=== PATIENT | male | born 1955 | race African-American/Black ===

== ENCOUNTER 2023-09-26 19:29 | Inpatient (IN) | payer OTHER ==
[2023-09-26] MEDS ORDERED: ONDANSETRON 4 MG/2 ML VIAL ONE (20:44)
[2023-09-26] MEDS ORDERED: ACETAMINOPHEN INJECTION 100 ML IVPB ONE (20:44)
[2023-09-26 21:16] LABS: BASO % 0.2 % (0-2.0); HEMATOCRIT 37.8 % (35.4-49); HEMOGLOBIN 12.4 GM/dL (11.7-16.9); LYMPH % 6.1 % (8-40); MCH 27.9 pg (25.7-33.7); MCHC 32.8 g/dl (32.0-35.9); MEAN CELL VOLUME 84.8 fl (80-96); MEAN PLT VOLUME 7.5 fl (7.5-11.1); MONO % 11.3 % (3.8-10.2); NEUT % 82.4 % (42.8-82.8); PLATELET COUNT 217 10^3/uL (134-434); RBC 4.46 M/mm3 (4.00-5.60); RDW 15.1 % (11.9-15.9); WHITE BLOOD COUNT 11.6 K/mm3 (4.0-10.0)
[2023-09-26] MEDS: ACETAMINOPHEN 1000 MG/100 ML BAG IVPB ONE (21:20)
[2023-09-26] MEDS: SODIUM CHLORIDE 0.9% 500 ML INFUS.BAG IV ONE (21:20)
[2023-09-26] MEDS: ONDANSETRON 4 MG/2 ML VIAL IVPB ONE (21:20)
[2023-09-26] MEDS: FAMOTIDINE 20 MG/50 ML IVPB 20 MG/50 ML MG IVPB ONE (21:51)
[2023-09-26 21:52] LABS: POTASSIUM 3.9 mmol/L (3.5-5.1)
[2023-09-26] MEDS ORDERED: FAMOTIDINE 20 MG/50 ML IVPB 20 MG/50 ML MG IVPB ONE (21:52)
[2023-09-26 21:54] LABS: CALCIUM 9.3 mg/dL (8.5-10.1)
[2023-09-26 21:55] LABS: ALBUMIN 2.4 g/dl (3.4-5.0); BLOOD UREA NITROGEN 31.2 mg/dL (7-18); MAGNESIUM 2.6 mg/dL (1.8-2.4)
[2023-09-26 21:58] LABS: CREATININE 1.1 mg/dL (0.55-1.3)
[2023-09-26 22:00] LABS: BILIRUBIN,TOTAL 0.9 mg/dL (0.2-1); TOT PROT 6.4 g/dl (6.4-8.2)
[2023-09-26 22:03] LABS: N-TERMINAL BNP 460.2 pg/ml (5-125)
[2023-09-26] MEDS ORDERED: DONEPEZIL HCL 5 MG TABLET (FP) ONE (22:46)
[2023-09-26] MEDS ORDERED: ATORVASTATIN CA 20 MG TABLET (FP) ONE (22:46)
[2023-09-27] MEDS ORDERED: morphine SULFATE 4 MG/ML VIAL ONE (02:17)
[2023-09-27] MEDS: morphine CARPU-JECT 4 MG/1 ML DISP.SYRIN IVPUSH ONE (02:23)
[2023-09-27] MEDS: SODIUM CHLORIDE 500 ML IV STA (05:44)
[2023-09-27] MEDS ORDERED: hydrALAZINE HCL 20 MG/ML VIAL IVPUSH PRN (05:45)
[2023-09-27] MEDS: ACETAMINOPHEN 1000 MG/100 ML BAG IVPB PRN (05:48)
[2023-09-27] MEDS: SODIUM CHLORIDE 1,000 ML IV SCH ×2 (06:00→12:41)
[2023-09-27 06:51] LABS: BASO % 0.3 % (0-2.0); EOS % 0.1 % (0-4.5); HEMATOCRIT 35.8 % (35.4-49); HEMOGLOBIN 11.7 GM/dL (11.7-16.9); LYMPH % 8.1 % (8-40); MCH 28.1 pg (25.7-33.7); MCHC 32.7 g/dl (32.0-35.9); MEAN CELL VOLUME 86.1 fl (80-96); MEAN PLT VOLUME 7.8 fl (7.5-11.1); MONO % 12.6 % (3.8-10.2); NEUT % 78.9 % (42.8-82.8); PLATELET COUNT 191 10^3/uL (134-434); RBC 4.16 M/mm3 (4.00-5.60); RDW 14.9 % (11.9-15.9); WHITE BLOOD COUNT 10.2 K/mm3 (4.0-10.0)
[2023-09-27 07:14] LABS: POTASSIUM 3.8 mmol/L (3.5-5.1)
[2023-09-27 07:17] LABS: CALCIUM 8.6 mg/dL (8.5-10.1)
[2023-09-27 07:21] LABS: CREATININE 0.9 mg/dL (0.55-1.3)
[2023-09-27] MEDS: BACLOFEN 10 MG TABLET (FP) PO ONE (08:18)
[2023-09-27] MEDS: amLODIPine BESYLATE 5 MG TABLET (FP) PO ONE ×2 (08:55→12:40)
[2023-09-27 09:19] LABS: URINE COLOR YELLOW
[2023-09-27 09:20] LABS: URINE APPEARANCE CLEAR; URINE BILIRUBIN NEGATIVE (NEGATIVE); URINE GLUCOSE (UA) 500 mg/dl (NEGATIVE); URINE KETONE 15 mg/dl (NEGATIVE); URINE LEUK ESTERASE NEGATIVE (NEGATIVE); URINE NITRITE NEGATIVE (NEGATIVE); URINE PROTEIN 1+ (NEGATIVE)
[2023-09-27 09:21] LABS: EPI CELLS 25.7 /uL (0-25.1); URINE BACTERIA 4.7 /uL (0-1359); URINE RBC 39.8 /uL (0-23.9); URINE WBC 15.6 /uL (0-25.8)
[2023-09-27] MEDS: LISINOPRIL 20 MG TABLET PO ONE (12:40)
[2023-09-27] MEDS ORDERED: BACLOFEN 10 MG TABLET (FP) PO SCH (14:00)
[2023-09-27] MEDS: ASPIRIN 81 MG CHEWABLE TABLETS PO SCH (15:25)
[2023-09-27] MEDS: INSULIN ASPART SLIDING SCALE (NOVOLOG) 1 VIAL SQ SCH (18:47)
[2023-09-27] MEDS: METOPROLOL TARTRATE 25 MG TABLET (FP) PO SCH (21:57)
[2023-09-27] MEDS: POLYETHYLENE GLYCOL (HEALTHYLAX) 3350 17 GM PACKET PO SCH (21:58)
[2023-09-28 07:56] LABS: POTASSIUM 3.8 mmol/L (3.5-5.1)
[2023-09-28 08:03] LABS: CALCIUM 8.5 mg/dL (8.5-10.1)
[2023-09-28 08:04] LABS: ALBUMIN 2.1 g/dl (3.4-5.0); BLOOD UREA NITROGEN 25.9 mg/dL (7-18); MAGNESIUM 2.4 mg/dL (1.8-2.4)
[2023-09-28 08:07] LABS: CREATININE 0.9 mg/dL (0.55-1.3); PHOSPHOROUS 2.5 mg/dL (2.5-4.9)
[2023-09-28 08:08] LABS: BILIRUBIN,TOTAL 1.2 mg/dL (0.2-1); TOT PROT 5.6 g/dl (6.4-8.2)
[2023-09-28] MEDS: HEPARIN NA (PORCINE) 5,000 UNITS/ML 1ML VIAL SQ SCH (09:23)
[2023-09-28] MEDS: LISINOPRIL 20 MG TABLET PO SCH (18:30)
[2023-09-28] MEDS: NIFEdipine E.R 60 MG TABLET PO SCH (18:30)
[2023-09-29] MEDS: ACETAMINOPHEN 325 MG TABLET (FP) PO ONE (02:34)
[2023-09-29 07:26] LABS: POTASSIUM 3.9 mmol/L (3.5-5.1)
[2023-09-29 07:31] LABS: BASO % 0.4 % (0-2.0); EOS % 1.2 % (0-4.5); HEMATOCRIT 34.2 % (35.4-49); HEMOGLOBIN 11.1 GM/dL (11.7-16.9); LYMPH % 9.2 % (8-40); MCH 28.1 pg (25.7-33.7); MCHC 32.5 g/dl (32.0-35.9); MEAN CELL VOLUME 86.5 fl (80-96); MEAN PLT VOLUME 7.7 fl (7.5-11.1); MONO % 11.4 % (3.8-10.2); NEUT % 77.8 % (42.8-82.8); PLATELET COUNT 247 10^3/uL (134-434); RBC 3.95 M/mm3 (4.00-5.60); RDW 14.8 % (11.9-15.9); WHITE BLOOD COUNT 10.2 K/mm3 (4.0-10.0)
[2023-09-29 07:32] LABS: CALCIUM 8.8 mg/dL (8.5-10.1)
[2023-09-29 07:33] LABS: BLOOD UREA NITROGEN 30.9 mg/dL (7-18); MAGNESIUM 2.5 mg/dL (1.8-2.4)
[2023-09-29 07:36] LABS: PHOSPHOROUS 3.1 mg/dL (2.5-4.9)
[2023-09-29 07:37] LABS: BILIRUBIN,TOTAL 0.8 mg/dL (0.2-1); TOT PROT 5.6 g/dl (6.4-8.2)
[2023-09-29] MEDS: SODIUM CHLORIDE 0.45% 1,000 ML IV SCH (19:15)
[2023-09-29 22:41] VITALS: BMI 28.7
[2023-09-30 07:08] LABS: HEMATOCRIT 33.5 % (35.4-49); HEMOGLOBIN 10.9 GM/dL (11.7-16.9); MCH 27.8 pg (25.7-33.7); MCHC 32.4 g/dl (32.0-35.9); MEAN CELL VOLUME 85.9 fl (80-96); PLATELET COUNT 279 10^3/uL (134-434); RBC 3.91 M/mm3 (4.00-5.60); RDW 14.9 % (11.9-15.9); WHITE BLOOD COUNT 9.3 K/mm3 (4.0-10.0)
[2023-09-30 07:29] LABS: CALCIUM 8.5 mg/dL (8.5-10.1)
[2023-09-30 07:30] LABS: ALBUMIN 2.1 g/dl (3.4-5.0); BLOOD UREA NITROGEN 28.5 mg/dL (7-18); MAGNESIUM 2.4 mg/dL (1.8-2.4)
[2023-09-30 07:33] LABS: PHOSPHOROUS 3.1 mg/dL (2.5-4.9)
[2023-09-30 07:34] LABS: BILIRUBIN,TOTAL 0.7 mg/dL (0.2-1); TOT PROT 5.7 g/dl (6.4-8.2)
[2023-09-30 10:02] LABS: ANISOCYTOSIS 0; HELMET CELLS 0; HOWELL-JOLLY BODIES 0; MACROCYTOSIS 0; OVALOCYTE 0; ROULEAU 0; SICKELED CELLS 0; TARGET CELLS 0; TEAR DROP CELLS 0; TOXIC GRANULATION 0
[2023-09-30] MEDS: ACETAMINOPHEN 325 MG TABLET (FP) PO PRN (11:38)
[2023-09-30] MEDS: DEXTROSE 5%-WATER - 1,000 ML IV SCH (17:02)
[2023-10-01 07:18] LABS: BASO % 0.8 % (0-2.0); EOS % 3.7 % (0-4.5); HEMATOCRIT 33.6 % (35.4-49); MCH 28.1 pg (25.7-33.7); MCHC 32.7 g/dl (32.0-35.9); MEAN PLT VOLUME 8.5 fl (7.5-11.1); MONO % 10.8 % (3.8-10.2); NEUT % 70.7 % (42.8-82.8); PLATELET COUNT 300 10^3/uL (134-434); RBC 3.91 M/mm3 (4.00-5.60); RDW 14.9 % (11.9-15.9); WHITE BLOOD COUNT 8.4 K/mm3 (4.0-10.0)
[2023-10-01 07:35] LABS: POTASSIUM 3.9 mmol/L (3.5-5.1)
[2023-10-01 07:40] LABS: ALBUMIN 2.1 g/dl (3.4-5.0); BLOOD UREA NITROGEN 21.6 mg/dL (7-18); CALCIUM 8.5 mg/dL (8.5-10.1); MAGNESIUM 2.3 mg/dL (1.8-2.4)
[2023-10-01 07:43] LABS: CREATININE 0.9 mg/dL (0.55-1.3)
[2023-10-01 07:44] LABS: BILIRUBIN,TOTAL 0.6 mg/dL (0.2-1); PHOSPHOROUS 2.8 mg/dL (2.5-4.9); TOT PROT 5.8 g/dl (6.4-8.2)
[2023-10-01] MEDS: METOPROLOL TARTRATE 25 MG TABLET (FP) PO SCH (09:26)
[2023-10-02 07:45] LABS: EOS % 3.7 % (0-4.5); HEMATOCRIT 35.2 % (35.4-49); HEMOGLOBIN 11.6 GM/dL (11.7-16.9); LYMPH % 14.6 % (8-40); MCH 28.2 pg (25.7-33.7); MCHC 32.8 g/dl (32.0-35.9); MEAN PLT VOLUME 8.1 fl (7.5-11.1); MONO % 8.6 % (3.8-10.2); NEUT % 72.1 % (42.8-82.8); PLATELET COUNT 320 10^3/uL (134-434); RDW 14.7 % (11.9-15.9)
[2023-10-02 07:48] LABS: POTASSIUM 3.8 mmol/L (3.5-5.1)
[2023-10-02 07:50] LABS: ALBUMIN 2.1 g/dl (3.4-5.0); CALCIUM 8.5 mg/dL (8.5-10.1)
[2023-10-02 07:51] LABS: BLOOD UREA NITROGEN 17.4 mg/dL (7-18); MAGNESIUM 2.1 mg/dL (1.8-2.4)
[2023-10-02 07:54] LABS: CREATININE 0.9 mg/dL (0.55-1.3); PHOSPHOROUS 2.8 mg/dL (2.5-4.9)
[2023-10-02 07:55] LABS: BILIRUBIN,TOTAL 0.4 mg/dL (0.2-1); TOT PROT 5.9 g/dl (6.4-8.2)
[2023-10-03 08:47] LABS: BASO % 0.9 % (0-2.0); EOS % 3.2 % (0-4.5); HEMATOCRIT 33.3 % (35.4-49); HEMOGLOBIN 10.8 GM/dL (11.7-16.9); LYMPH % 14.9 % (8-40); MCH 27.9 pg (25.7-33.7); MCHC 32.4 g/dl (32.0-35.9); MEAN CELL VOLUME 86.1 fl (80-96); MEAN PLT VOLUME 8.5 fl (7.5-11.1); PLATELET COUNT 325 10^3/uL (134-434); RBC 3.87 M/mm3 (4.00-5.60); RDW 14.6 % (11.9-15.9); WHITE BLOOD COUNT 8.4 K/mm3 (4.0-10.0)
[2023-10-03 09:05] LABS: POTASSIUM 4.3 mmol/L (3.5-5.1)
[2023-10-03 09:15] LABS: CALCIUM 8.6 mg/dL (8.5-10.1)
[2023-10-03 09:16] LABS: ALBUMIN 2.1 g/dl (3.4-5.0); BLOOD UREA NITROGEN 16.8 mg/dL (7-18); CREATININE 0.9 mg/dL (0.55-1.3); MAGNESIUM 2.4 mg/dL (1.8-2.4)
[2023-10-03 09:17] LABS: BILIRUBIN,TOTAL 0.4 mg/dL (0.2-1); TOT PROT 5.7 g/dl (6.4-8.2)
[2023-10-03 09:19] LABS: PHOSPHOROUS 3.1 mg/dL (2.5-4.9)
[2023-10-03 09:22] VITALS: RESP 18
[2023-10-03] MEDS: GLYCERIN 1 RECTAL SUPPOSITORY, ADULT RC ONE (13:02)
[2023-10-03] MEDS: DOXYCYCLINE HYCLATE 100 MG CAPSULE PO ONE (16:33)
[2023-10-03] MEDS: hydrALAZINE HCL 20 MG/ML VIAL IVPUSH PRN (18:06)
[2023-10-03 19:02] VITALS: BP 158/80; PULSE 98; TEMP 98.4
== END 2023-10-03 19:50 | DRG 557 ==
LOC: JER 19:29 → JERBED 09-27 01:58 → J4W 09-27 05:10
PROVIDERS: ADMIT Internal Medicine; ATTEND Internal Medicine
DX: M62.82 Rhabdomyolysis (principal); G93.41 Metabolic encephalopathy; L89.313 Pressure ulcer of right buttock, stage 3; J69.0 Pneumonitis due to inhalation of food and vomit; I69.354 Hemiplegia and hemiparesis following cerebral infarction affecting left non-dominant side; E87.0 Hyperosmolality and hypernatremia; I10 Essential (primary) hypertension; E11.9 Type 2 diabetes mellitus without complications; E78.5 Hyperlipidemia, unspecified; E86.0 Dehydration; M17.12 Unilateral primary osteoarthritis, left knee; R50.9 Fever, unspecified; A53.9 Syphilis, unspecified; R33.9 Retention of urine, unspecified; I69.391 Dysphagia following cerebral infarction; R13.10 Dysphagia, unspecified; M25.462 Effusion, left knee; R47.81 Slurred speech; W18.30XA Fall on same level, unspecified, initial encounter; Y92.099 Unspecified place in other non-institutional residence as the place of occurrence of the external cause; Y99.9 Unspecified external cause status
CPT/HCPCS: 0241U-QW; 36415; 70450-TC; 70545-TC; 70548-TC; 70551-TC; 71045-TC-FY; 71250-TC; 72125-TC; 72131-TC; 72148-TC; 72170-TC-FY; 73700-TC-RT; 74177-TC; 74230-TC-FY; 80048; 80053; 81003; 82550; 82553; 82607; 82962; 83605; 83735; 83880; 84100; 84439; 84443; 84484; 85025; 86140; 86593; 86780; 87040; 87081; 87086; 92611-GN; 93005; 93010; 93306-TC; 93970-TC; 95816; 97116-GP; 97162-GP; 99285-25; J0131; J1644; Q9967